=== PATIENT | male | born 1945 | race Caucasian/White ===

== ENCOUNTER 2020-09-06 20:39 | Emergency (ER) | payer MEDICARE ==
[~2020-09-06] VITALS: Ht 185.4 cm; Wt 80.3 kg
--- NOTE | 2020-09-06 20:43 | PHYS DOC ---
Past History Past Medical History: Arthritis, Diabetes General Adult HPI: HPI: " I ve been janene sick a week or so.. nausea, vomiting, ... weakness.. .. I had some low blood pressure at home... 70/40... I am probably dry.. I seen Dr. Graham wednesday.. he was a little worried about my heart.. I had been seeing Dr. Barry.. but he retired.. and then Dr. Mcdowell.. but he moved away.. .. I am diabetic... but sugars have not been too bad at home .. not been able to keep much down because because of nausea...".."Just have felt really bad since wednesday.. fever.. chills.. I am to see the splash line operator here in the next week or so because of had some history of kidney problems.. Patient is a 74 year old male who presents with above hx and complaints nausea, vomiting, weakness, malaise, dyspnea, fever, chills and hyportension. Patient denies previous cardiac disorders, has had history of hypertension. Patient has had history of diabetes. Patient denies any recent travel or specific ill contacts.. Patient has not gotten a flu vaccination this season. Patient has gotten flu vaccinations in the past. Patient denies any intake of bad food. Patient states today he has had low blood pressures on checks. Patient has had a cough but it has been nonproductive. Patient states he gets dizzy upon standing. Patient states he has been much more short of breath since Wednesday and very weak. Review of Systems: Review of Systems: Constitutional: Subjective complaints of fever and chills Eyes: Denies change in visual acuity HENT: Complains of nasal congestion and sore throat Respiratory: Complaints of cough and shortness of breath Cardiovascular: Denies chest pain or edema GI: Complains of nausea, vomiting,. Denies bloody stools or diarrhea : Denies dysuria Musculoskeletal: Complains of generalized myalgia, arthralgia and weakness Integument: Denies rash Neurologic: Denies headache, focal weakness or sensory changes Endocrine: Denies polyuria or polydipsia Lymphatic: Denies swollen glands Psychiatric: Denies depression or anxiety Family History: Family History: Noncontributory to presentation Current Medications: Current Meds: See nursing for home meds Allergies: Allergies: No known drug allergies Physical Exam: PE: Constitutional: Appears in acute distress, ill in appearance. [] HENT: Normocephalic, atraumatic, bilateral external ears normal, oropharynx moist, no oral exudates, nose normal. [] Eyes: PERRLA, EOMI, conjunctiva normal, no discharge. [] Neck: Normal range of motion, no tenderness, supple, no stridor. JVD in sitting position Cardiovascular:Heart rate regular rhythm, no murmur, PMI to the left Lungs & Thorax: Bilateral breath sounds equal at apex but scattered wheezes throughout, basilar crackles, rhonchi more present on right base. ] Abdomen: Bowel sounds normal, soft, generalized tenderness, no masses, no pulsatile masses. [] Skin: Warm, , no erythema, no rash. Pale. Back: No tenderness, no CVA tenderness. [] Extremities: No tenderness, no cyanosis, no clubbing, ROM intact, ankle edema. [] Neurologic: Alert and oriented X 3, moves all extremities on request, does have distal sensory, no focal deficits noted. [] Psychologic: Affect anxious, judgement normal, mood normal. [] EKG: EKG: My interpretation EKG shows a sinus rhythm at 79 bpm. Does have prolonged VT interval at [address] a [address] T strain pattern. There is some contralateral elevation and lead III. There is findings of mild elevation V1 2 and 3 but no findings of acute STEMI of contralateral changes. However is an abnormal EKG .[] Radiology/Procedures: Radiology/Procedures: My interpretation of chest x-ray shows increased cephalization. Scattered infiltrates. Blunting of costophrenic angle > on the right . There is some patchy by basilar pattern consistent with pneumonia. No free air under the diaphragm. Non obstructive bowel gas pattern. Minimal stool. Psoas shadow is visible. [] Heart Score: HEART Score for Chest Pain: HEART Score for Chest Pain Response (Comments) Value History Moderately Suspicious 1 ECG Nonspecific Repolarizatio 1 Age > 65 2 Risk Factors >3 Risk Factors or Hx CAD 2 Troponin >3 x Normal Limit 2 Total 8 Risk Factors: Risk Factors: DM, Current or recent (<one month) smoker, HTN, HLP, family history of CAD, obesity. Risk Scores: Score 0 - 3: 2.5% MACE over next 6 weeks - Discharge Home Score 4 - 6: 20.3% MACE over next 6 weeks - Admit for Clinical Observation Score 7 - 10: 72.7% MACE over next 6 weeks - Early Invasive Strategies Course & Med Decision Making: Course & Med Decision Making Pertinent Labs and Imaging studies reviewed. (See chart for details) Discussed presentation, testing and treatment plan with Hospitalist and Dr. Desai. Giselle advise Heparin and Lasix. Transfer to CVICU. Rocephin/Azthromax started. CC 60 min. Impression: 1, Pneumonia 2. WA Trop. 8.521 3. CHF- BNP 16,684 4. Leukocytosis 19.7 5. Anemia 11.4 6. Acute Renal Failure BUN 53/Creat 3.3 7. DM= Glu 331 8. Hyperkalemia 5.7 9. SIRs/ Sepsis= Lac. 5.5 [] Dragon Disclaimer: Dragon Disclaimer: This electronic medical record was generated, in whole or in part, using a voice recognition dictation system. Departure Departure: Referrals: GONZALO GRAHAM MD (PCP) Dragon Disclaimer This chart was dictated in whole or in part using Voice Recognition software in a busy, high-work load, and often noisy Emergency Department environment. It may contain unintended and wholly unrecognized errors or omissions. Dragon Disclaimer This chart was dictated in whole or in part using Voice Recognition software in a busy, high-work load, and often noisy Emergency Department environment. It may contain unintended and wholly unrecognized errors or omissions. Dragon Disclaimer This chart was dictated in whole or in part using Voice Recognition software in a busy, high-work load, and often noisy Emergency Department environment. It may contain unintended and wholly unrecognized errors or omissions. RODOLFO GOLDSTEIN MD Sep 06, 2020 20:43
[2020-09-06] MEDS ORDERED: IV RINGERS SOLUTION,LACTATED 1,000 ML IV SCH (20:45)
[2020-09-06 21:28] LABS: BASO % 0 % (0-3); CALCIUM 8.7 mg/dL (8.5-10.1); CREATININE 3.3 mg/dL (0.7-1.3); EOS % 0 % (0-3); GFR 18.4; HEMATOCRIT 36.3 % (39.0-53.0); HEMOGLOBIN 11.4 g/dL (13.0-17.5); LYMPH % 10 % (24-48); MEAN CORPUSCULAR HEMOGLOBIN 31 pg (25-35); MEAN CORPUSCULAR HGB CONC 31 g/dL (31-37); MEAN CORPUSCULAR VOLUME 97 fL (79-100); MONO # 1.1 x10^3/uL (0.0-1.1); MONO % 6 % (0-9); NEUT # 16.6 x10^3uL (1.8-7.7); NEUT % 84 % (31-73); PLATELET COUNT 282 x10^3/uL (140-400); POTASSIUM 5.7 mmol/L (3.5-5.1); RED BLOOD COUNT 3.75 x10^6/uL (4.30-5.70); RED CELL DISTRIBUTION WIDTH 15.5 % (11.5-14.5); WHITE BLOOD COUNT 19.7 x10^3/uL (4.0-11.0)
[2020-09-06] MEDS ORDERED: ONDANSETRON PF 4 MG/2 ML VIAL. IVP ONE (21:30)
[2020-09-06 21:41] LABS: ALBUMIN 3.5 g/dL (3.4-5.0); C REACTIVE PROTEIN 34.7 mg/L (0-3.3); DIRECT BILIRUBIN 0.2 mg/dL (0.0-0.2); MAGNESIUM 2.5 mg/dL (1.8-2.4); TOTAL BILIRUBIN 0.7 mg/dL (0.2-1.0); TOTAL PROTEIN 7.1 g/dL (6.4-8.2)
[2020-09-06 21:58] LABS: % LYMPHS 12 % (24-48); % MONOS 3 % (0-10); % SEGS 85 % (35-66); PLT ESTIMATE ADEQUATE (ADEQUATE)
--- NOTE | 2020-09-06 22:11 | RAD ---
Exam: Acute abdominal series INDICATION: Nausea vomiting, TECHNIQUE: Frontal view of the chest with upright and supine views the abdomen Comparisons: None FINDINGS: The cardiomediastinal silhouette and pulmonary vessels are within normal limits. Patchy airspace disease at the lung bases bilaterally greater at the right infrahilar region. Air and stool are noted throughout the colon to level the rectum in a nonobstructive bowel gas patter n. No suspicious masses or calcifications. Visualized osseous structures are unremarkable. IMPRESSION: 1. Patchy bibasilar airspace disease greater on the right favored to be infectious or inflammatory i n etiology 2. Nonobstructive bowel gas pattern. Electronically signed by: Lena Luis MD (09/06/2020 10:08 PM) [facility]
[2020-09-06] MEDS ORDERED: FUROSEMIDE 40 MG/4 ML VIAL IVP ONE (22:15)
[2020-09-06 22:23] LABS: BGAS PH 7.3 (7.35-7.46)
[2020-09-06] MEDS ORDERED: HEPARIN for IV BOLUS 10,000 UNIT/10 ML VIAL. IV ONE (22:30)
[2020-09-06] MEDS ORDERED: AZITHROMYCIN 500 MG in IV NORMAL SALINE 250ML 250 ML IV ONE (22:30)
[2020-09-06 22:38] VITALS: BP 96/46
[2020-09-06] MEDS ORDERED: IV NORMAL SALINE 250ML 250 ML ONE (22:43)
[2020-09-06] MEDS ORDERED: cefTRIAXone SODIUM 1 GM VIAL ONE (22:43)
[2020-09-06] MEDS ORDERED: IV NORMAL SALINE 50ML 50 ML ONE (22:43)
[2020-09-06] MEDS ORDERED: AZITHROMYCIN 500 MG VIAL. IV ONE (22:44)
[2020-09-06 23:38] LABS: INFLUENZA A PATIENT NEGATIVE (NEGATIVE); INFLUENZA B PATIENT NEGATIVE (NEGATIVE)
--- NOTE | 2020-09-07 00:08 | EKG ---
[address] [address] Test Date: 2020-09-06 Test Time: 21:05:25 Pat Name: JEAN CARLOS IYER Department: Room: Gender: M [employer] Teacher: : 1945 Requested By: RODOLFO GOLDSTEIN Order Number: [id number] Reading MD: Leeroy Desai MD Measurements Intervals [place] Rate: 79 P: 53 MT: 220 QRS: 38 QRSD: 104 T: 151 QT: 370 QTc: 425 Interpretive Statements SINUS RHYTHM PROLONGED MT INTERVAL QRS(T) CONTOUR ABNORMALITY CONSIDER INFERIOR MYOCARDIAL DAMAGE ST & T ABNORMALITY, CONSIDER ANTEROLATERAL ISCHEMIA OR LEFT VENTRICULAR STRAIN ABNORMAL ECG Electronically Signed On 09-07-2020 7:06:41 COUNTER ATTENDANT by Leeroy Desai MD
== END 2020-09-06 23:30 | disposition short-term general hospital (02) ==
LOC: ER 20:39
DX: J18.9 Pneumonia, unspecified organism (principal); I21.9 Acute myocardial infarction, unspecified; D72.829 Elevated white blood cell count, unspecified; N17.9 Acute kidney failure, unspecified; D64.9 Anemia, unspecified; E11.9 Type 2 diabetes mellitus without complications; E87.5 Hyperkalemia; I50.9 Heart failure, unspecified; M19.90 Unspecified osteoarthritis, unspecified site
CPT/HCPCS: 36415; 36600; 74022; 80048; 80076; 82150; 82550; 82803; 82947; 83605; 83690; 83735; 83880; 84443; 84484; 85007; 85025; 85379; 85610; 85730; 86140; 87040; 87070; 87804; 87880; 93005; 96361; 96365; 96375; 99291; J0456; J0696; J1644; J1940; J2405; J7050; J7120; 99285-25